=== PATIENT | male | born 1975 | race Caucasian/White ===

== ENCOUNTER 2018-07-17 05:02 | Emergency (ER) | payer OTHER ==
[~2018-07-17] VITALS: Ht 177.8 cm; Wt 95.5 kg
[2018-07-17 05:17] VITALS: TEMP 97.8
[2018-07-17 06:36] VITALS: BP 162/112; PULSE 104
== END 2018-07-17 06:46 | disposition home or self-care (01) ==
LOC: COL.ER 05:02
DX: M79.662 Pain in left lower leg (principal); K21.9 Gastro-esophageal reflux disease without esophagitis

== ENCOUNTER → 2018-07-17 | Outpatient (CLI) | payer OTHER | LOC: COL.RAD 14:44 | DX: Z13.6 Encounter for screening for cardiovascular disorders (principal); S86.812A Strain of other muscle(s) and tendon(s) at lower leg level, left leg, initial encounter ==